=== PATIENT | female | born 1995 | race Caucasian/White ===

== ENCOUNTER 2017-03-04 16:34 | Emergency (ER) | payer OTHER ==
[~2017-03-04] VITALS: Ht 152.4 cm; Wt 55.9 kg
[2017-03-04 17:11] LABS: HEMATOCRIT 41.6 % (36.0-46.0); MCH 28.3 PG (29.0-34.0); MCHC 33.7 G/DL (30.0-36.0); MEAN PLAT.VOLUME 10.6 uM^3 (9.5-12.4); PLATELET COUNT 199 K/uL (156-360); RBC DIS.WIDTH-CV 12.7 % (11.8-14.6); RED BLOOD COUNT 4.95 M/uL (3.80-5.20); WHITE BLOOD COUNT 7.4 K/uL (4.1-10.2)
[2017-03-04 17:21] LABS: CHLORIDE 104 mEq/L (99-109); POTASSIUM 3.9 mEq/L (3.7-5.4); SODIUM 139 mEq/L (136-147)
[2017-03-04 17:23] LABS: GLUCOSE 94 mg/dL (70-99)
[2017-03-04 17:23] LABS: ADD MIUA? YES; BILIRUBIN NEGATIVE; BLOOD SMALL; COLOR YELLOW ((YELLOW)); GLUCOSE (STRIP) NEGATIVE; KETONES NEGATIVE; LEUKOCYTES SMALL; NITRITE POSITIVE; PROTEIN (STRIP) NEGATIVE; SPECIFIC GRAVITY 1.016 (1.000-1.030); UROBILINOGEN 0.2 MG/DL (0.2-1.0)
[2017-03-04 17:24] LABS: ANION GAP 11 MEQ/L (2-14)
[2017-03-04 17:26] LABS: GFR ESTIMATE (CALCULATED) > 59 mL/min/
[2017-03-04 17:27] LABS: UREA NITROGEN (BUN) 10 mg/dL (9-23)
[2017-03-04 17:34] LABS: BACTERIA RARE /HPF; EPITHELIAL CELLS RARE /HPF; MUCUS 1+ /LPF; UCUL ADDED? YES; WHITE BLOOD CELLS 40-50 /HPF (0-5)
[2017-03-04 17:34] LABS: QUANTITATIVE HCG < 4.0 MIU/ML
[2017-03-04] MEDS ORDERED: PYRIDIUM100 MG PO (19:32)
[2017-03-04] MEDS ORDERED: MACROBID100 MG PO (19:32)
[2017-03-04 19:46] VITALS: BP 116/80
== END 2017-03-04 19:47 | disposition home or self-care (01) ==
LOC: EME 16:34
DX: N39.0 Urinary tract infection, site not specified (principal); R11.0 Nausea; F17.210 Nicotine dependence, cigarettes, uncomplicated; Z88.0 Allergy status to penicillin
CPT/HCPCS: 74020; 80048; 81003; 84702; 85027; 87077; 87086; 87186; 99281; 99284; J1885